=== PATIENT | male | born 1980 | race Caucasian/White ===

== ENCOUNTER 2017-04-23 14:10 | Emergency (ER) | payer SELFPAY ==
[2017-04-23 14:18] VITALS: BP 124/82; PULSE 80; RESP 16; TEMP 98.2; O2SAT 95
--- NOTE | 2017-04-23 14:59 | EDPHY ---
H & P Time Seen by Provider: 04/23/17 14:22 HPI/ROS: Chief complaint. Groin pain HPI. Patient is a 37-year-old male presents with pain to the right groin area. 4 days ago he was running and stopping at exercise stations to do individual exercises. He was at a station doing sit-ups and decided to more sit ups than usual. While doing sit-ups he felt a pop in the right groin. He has continued to have discomfort with raising his leg and turning his leg to the outside. He feels that he has slight fever 2 days ago. He has not had any vomiting or diarrhea. He notes that he has a "sensitive stomach ". It has maybe been a little more sensitive the last few days. He has not noticed any swelling to the groin area. He notes very slight pain in the right testicle. He has a known spermatocele. He notes no increased swelling or deformity or significant tenderness to the testicle. There is no urinary symptoms. No similar symptoms previously ROS Constitutional. no fever/chills, no weakness Eyes. no problems with vision ENT. no sore throat, no nasal drainage Cardiovascular. no chest pain Respiratory. no shortness of breath, no cough Abdominal. Right groin pain . no problems urinating MS. no calf pain/swelling, no neck/back pain, no joint pain Skin. no rash Lymph. no swollen glands Neuro. no headache, no dizziness, no difficulty walking or with speech Past Medical/Surgical History: Healthy Social History: , nonsmoker, no alcohol Smoking Status: Never smoked Physical Exam: General Appearance: Alert pleasant well-developed male mild distress vital signs are stable Eyes: Pupils equal and round no pallor or injection. ENT, Mouth: Mucous membranes are moist. Respiratory: There are no retractions, lungs are clear to auscultation. Cardiovascular: Regular rate and rhythm. Gastrointestinal: Abdomen is soft and he he does not have tenderness at McBurney's point. He is tender to palpation of the mid inguinal ligament on the right. Testicle exam is normal. Standing the patient up and having him bear down shows no evidence of direct or indirect inguinal hernia. Slight increase in tenderness with flexion of the right hip and the patient manifest pain again and the inguinal ligament area Neurological: Awake and alert, sensory and motor exams grossly normal. Skin: Warm and dry, no rashes. Musculoskeletal: Neck is supple nontender. Extremities symmetrical, full range of motion. Psychiatric: Patient is oriented X 3, there is no agitation. Constitutional: Initial Vital Signs Temperature (C) 36.8 C 04/23/17 14:14 Heart Rate 80 04/23/17 14:14 Respiratory Rate 16 04/23/17 14:14 Blood Pressure 124/82 H 04/23/17 14:14 O2 Sat (%) 95 04/23/17 14:14 Allergies/Adverse Reactions: No Known Allergies Allergy (Unverified 04/23/17 14:18) Home Medications: Medication Instructions Recorded NK [No Known Home Meds] 04/23/17 Medical Decision Making ED Course/Re-evaluation: The patient and I discussed further evaluation including laboratory evaluation including urinalysis. We discussed imaging studies. Due to the fact that this is afternoon the patient prefers not to have further evaluation done at this point but of will follow up. He and I discussed treatment plan including criteria for return importance of follow-up and further evaluation. He expresses understanding and agreement Differential Diagnosis: I think that this is strain or injury to the inguinal ligament. He is tender to this area to palpation. I considered appendicitis but he is really not tender at McBurney's point and he has had this now for 3-4 days without significant abdominal findings. I considered testicular torsion as well as epididymitis. I have considered urinary tract infection. I considered hernia both direct and indirect as well as an incarcerated hernia. He does not seem to have any of these. He and I agreed on conservative management with follow- up with surgery in several days if not beginning to improve Departure - Departure Disposition: Home, Routine, Self-Care Clinical Impression: Strain of groin Qualifiers: Encounter type: initial encounter Laterality: right Qualified Code(s): S76.211A - Strain of adductor muscle, fascia and tendon of right thigh, initial encounter Condition: Good Instructions: Groin Strain (ED) Additional Instructions: Heat to sore area. Ibuprofen 600 mg every 6 hr for the next 24-48 hours. Activity as tolerated. Return for worsening pain, swelling, vomiting, fever. Recheck in 3-4 days if not improved Referrals: Eduardo Hinds MD [Medical Doctor] - 3-4 days, if not improved
== END 2017-04-23 15:00 | disposition home or self-care (01) ==
LOC: CED 14:10
DX: S76.211A Strain of adductor muscle, fascia and tendon of right thigh, initial encounter (principal); X58.XXXA Exposure to other specified factors, initial encounter; Y99.8 Other external cause status; Y93.B2 Activity, push-ups, pull-ups, sit-ups

== ENCOUNTER 2017-04-28 20:40 | Inpatient (IN) | payer OTHER ==
[2017-04-28] MEDS ORDERED: NS 1,000 ML IV ONE (21:21)
--- NOTE | 2017-04-28 21:27 | EDPHY ---
General - History Smoking Status: Never smoked Narrative: CHIEF COMPLAINT: Abdominal and groin pain HISTORY OF PRESENT ILLNESS: Patient complains of right lower quadrant and right inguinal pain that started last Monday, 9 days ago. This was afternoon exercising. The pain is minimal at day. It worsened the next 2 days. He was seen here on the 23 of April with examination only. Laboratory studies and CT scan were performed because he asked to leave for this due to time constraints. He was discharged with ibuprofen and instructions to return emergency department. He has had no improvement of the symptoms and thus he returns. He is now also having some epigastric discomfort, cough, fever, chills and "maybe flu like" symptoms. Also has some mild right testicular pain that is unchanged over the past 10 days, and he says consistent with his known spermatocele. No chest pain or shortness of breath. No neck pain or stiffness. Headache. No urinary complaints. He also wanted to urgent care prior to right here, and they sent him to our facility for higher level of care with no intervention pain REVIEW OF SYSTEMS: Ten systems reviewed and are negative unless otherwise noted in the HPI PCP: No primary care physician SPECIALISTS: None PAST MEDICAL HISTORY: Right spermatocele PAST SURGICAL HISTORY: None SOCIAL HISTORY: Nonsmoker. Self-employed here locally FAMILY HISTORY: Noncontributory EXAMINATION General Appearance: Alert, no distress Head: normocephalic, atraumatic Eyes: Pupils equal and round, no conjunctival pallor or injection ENT, Mouth: Mucous membranes moist. Uvula midline. Airway patent Neck: Normal inspection, supple, non-tender Respiratory: Lungs are clear to auscultation. No wheezing or crackles Cardiovascular: Tachycardic rate at 103 beats per minute. Regular rhythm. No murmur Gastrointestinal: Abdomen is soft and nondistended. There is minimal tenderness in the epigastrium. No guarding in the epigastrium. There is right lower quadrant tenderness at McBurney's point with firmness of uncertain etiology. There is guarding in the right lower quadrant. There is no CVA tenderness. No tympany or rigidity. Neurological: A&O, nonfocal, normal gait Skin: Warm and dry, no rash. No petechiae purpura Extremities: Nontender, no pedal edema Psychiatric: Mood and affect normal DIFFERENTIAL DIAGNOSES: Including but not limited to appendicitis, rectus sheath hematoma, colitis, muscular tear, muscular strain, inguinal ligament sprain MDM: 9:20 p.m. Right lower quadrant and right inguinal abdominal pain since last Monday. Abdominal exam does reveal guarding the right lower quadrant with firmness McBurney's point of uncertain etiology. He is tachycardic and borderline febrile. I have ordered laboratory studies, IV fluid, CT scan abdomen and pelvis. I have ordered lactic acid patient may need blood cultures. He is in no acute distress. No hypoxia. No hypotension. 9:45 p.m. Lactic acid is negative. There is mild leukocytosis. CT scan pending. 10:20 p.m. I have reviewed the CT scan myself and with Dr. Cruz. There is evidence of ruptured appendicitis with abscess. I have re-evaluated the patient and he is NPO as of 1:30 p.m.. I informed him of the surgical consult pending. 10:25 p.m. I discussed the case with on-call surgeon Dr. Hinds. He will come evaluate the patient in the emergency department. 10:28 p.m. Notified by radiologist Dr. Askew. CT scan does reveal perforated appendicitis with abscess and inflammatory changes in the terminal ileum. 10:44 p.m. Patient is currently being evaluated by Dr. Hinds. 11:[address] Hinds has evaluated the patient and plans for surgical intervention. This will be a difficult intervention as the patient did have delayed presentation and now has perforated appendicitis with abscess. He has discussed with the patient and patient will likely be taken to the OR soon. At this time he is in no acute distress, IV Invanz has been ordered and he has received IV fluid resuscitation in the emergency department. He is admitted in stable condition to the operating room SUPERVISION: Patient was evaluated and examined in conjunction with my secondary supervising physician as documented. We have both examined the patient. (Junior Salas) Medical Decision Making: PHYSICIAN DOCUMENTATION: The patient was evaluated and managed by the Physician Payroll And Benefits Assistant and myself. I have reviewed the chart and agree with the findings and plan of care as documented. In addition, I examined the patient myself at 2140. History confirmed as symptoms started 4 days prior to [facility] with right lower quadrant pain after doing sit-ups at [facility]. Symptoms persisted and now has pain in his right lower quadrant of his abdomen. Physical findings as follows: Some right lower quadrant swelling and tenderness to palpation. Plan for CT scanning after i-STAT creatinine. Differential includes but not limited to rectus sheath hematoma, ruptured appendicitis. CT personally interpreted as appendicitis with appendicolith and surrounding abscess. Surgical consultation, IV Invanz, admission. I am the secondary supervising physician. (Kristian Cruz) - Diagnostics Imaging Results: Imaging Impressions Abdomen CT 04/28/17 21:21 Impression: 1. Findings compatible with appendicitis, with rupture and adjacent abscess. Multiple appendoliths. Marked surrounding inflammatory change. 2. Mild free fluid in the pelvis. Results called and discussed with Junior Salas PA-C, on April 28, 2017 at 2230. - Objective Vital Signs: Initial Vital Signs Temperature (C) 100.0 F 04/28/17 21:16 Heart Rate 113 H 04/28/17 21:16 Respiratory Rate 18 04/28/17 21:16 Blood Pressure 131/85 H 04/28/17 21:16 O2 Sat (%) 95 04/28/17 21:16 O2 Delivery Mode Nasal Cannula O2 (L/minute) 3 Allergies/Adverse Reactions: No Known Allergies Allergy (Unverified 04/23/17 14:18) Home Medications: Medication Instructions Recorded NK [No Known Home Meds] 04/23/17 Laboratory Results: Laboratory Results 04/28/17 21:30 04/28/17 21:30 04/28/17 04/28/17 04/28/17 21:40 21:30 21:30 WBC 10.39 10^3/uL H 10^3/uL (3.80-9.50) RBC 5.06 10^6/uL 10^6/uL (4.40-6.38) Hgb 15.1 g/dL g/dL (13.7-17.5) POC Hgb 13.6 gm/dL L gm/dL (13.7-17.5) Hct 42.4 % % (40.0-51.0) POC Hct 40 % % (40-51) MCV 83.8 fL fL (81.5-99.8) MCH 29.8 pg pg (27.9-34.1) MCHC 35.6 g/dL g/dL (32.4-36.7) RDW 11.9 % % (11.5-15.2) Plt Count 126 10^3/uL L 10^3/uL (150-400) MPV 9.1 fL fL (8.7-11.7) Neut % (Auto) 73.1 % % (39.3-74.2) Lymph % (Auto) 12.0 % L % (15.0-45.0) [place] % (Auto) 12.9 % % (4.5-13.0) Eos % (Auto) 1.2 % % (0.6-7.6) Baso % (Auto) 0.4 % % (0.3-1.7) Nucleat RBC Rel Count 0.0 % % (0.0-0.2) Absolute Neuts (auto) 7.60 10^3/uL H 10^3/uL (1.70-6.50) Absolute Lymphs (auto) 1.25 10^3/uL 10^3/uL (1.00-3.00) Absolute Monos (auto) 1.34 10^3/uL H 10^3/uL (0.30-0.80) Absolute Eos (auto) 0.12 10^3/uL 10^3/uL (0.03-0.40) Absolute Basos (auto) 0.04 10^3/uL 10^3/uL (0.02-0.10) Absolute Nucleated RBC 0.00 10^3/uL 10^3/uL (0-0.01) Immature Gran % 0.4 % % (0.0-1.1) Immature Gran # 0.04 10^3/uL 10^3/uL (0.00-0.10) VBG Lactic Acid POC Sodium 138 mEq/L mEq/L (134-144) Sodium 138 mEq/L mEq/L (134-144) POC Potassium 3.6 mEq/L mEq/L (3.3-5.0) Potassium 4.0 mEq/L mEq/L (3.5-5.2) POC Chloride 99 mEq/L mEq/L (97-110) Chloride 100 mEq/L mEq/L (97-110) Carbon Dioxide 23 mEq/l mEq/l (22-31) Anion Gap 15 mEq/L mEq/L (8-16) POC BUN 10 mg/dL mg/dL (7-23) BUN 11 mg/dL mg/dL (7-23) Creatinine 1.0 mg/dL mg/dL (0.7-1.3) POC Creatinine 1.1 mg/dL mg/dL (0.7-1.3) Estimated GFR > 60 Glucose 100 mg/dL mg/dL (70-100) POC Glucose 99 mg/dL mg/dL (70-100) Calcium 9.4 mg/dL mg/dL (8.5-10.4) Total Bilirubin 1.3 mg/dL mg/dL (0.1-1.4) Conjugated Bilirubin 0.4 mg/dL mg/dL (0.0-0.5) Unconjugated Bilirubin 0.9 mg/dL mg/dL (0.0-1.1) AST 24 IU/L IU/L (17-59) ALT 39 IU/L IU/L (21-72) Alkaline Phosphatase 106 IU/L IU/L (38-126) Total Protein 7.0 g/dL g/dL (6.3-8.2) Albumin 3.9 g/dL g/dL (3.5-5.0) Lipase 37 IU/L IU/L (23-300) Urine Color Urine Appearance Urine pH Ur Specific [place] Urine Protein Urine Ketones Urine Blood Urine Nitrate Urine Bilirubin Urine Urobilinogen Ur Leukocyte Esterase Urine RBC Urine WBC Ur Epithelial Cells Urine Mucus Urine Glucose 04/28/17 04/28/17 21:30 21:15 WBC RBC Hgb POC Hgb Hct POC Hct MCV MCH MCHC RDW Plt Count MPV Neut % (Auto) Lymph % (Auto) [place] % (Auto) Eos % (Auto) Baso % (Auto) Nucleat RBC Rel Count Absolute Neuts (auto) Absolute Lymphs (auto) Absolute Monos (auto) Absolute Eos (auto) Absolute Basos (auto) Absolute Nucleated RBC Immature Gran % Immature Gran # VBG Lactic Acid 0.9 mmol/L mmol/L (0.7-2.1) POC Sodium Sodium POC Potassium Potassium POC Chloride Chloride Carbon Dioxide Anion Gap POC BUN BUN Creatinine POC Creatinine Estimated GFR Glucose POC Glucose Calcium Total Bilirubin Conjugated Bilirubin Unconjugated Bilirubin AST ALT Alkaline Phosphatase Total Protein Albumin Lipase Urine Color YELLOW Urine Appearance CLEAR Urine pH 5.0 (5.0-7.5) Ur Specific [place] 1.018 (1.002-1.030) Urine Protein NEGATIVE (NEGATIVE) Urine Ketones 2+ H (NEGATIVE) Urine Blood 2+ H (NEGATIVE) Urine Nitrate NEGATIVE (NEGATIVE) Urine Bilirubin NEGATIVE (NEGATIVE) Urine Urobilinogen NEGATIVE EU EU (0.2-1.0) Ur Leukocyte Esterase NEGATIVE (NEGATIVE) Urine RBC 1-3 /hpf /hpf (0-3) Urine WBC 1-3 /hpf /hpf (0-3) Ur Epithelial Cells NONE SEEN /lpf /lpf (NONE-1+) Urine Mucus TRACE /lpf /lpf (NONE-1+) Urine Glucose NEGATIVE (NEGATIVE) Medications Given: Discontinued Medications Bupivacaine HCl (Sensorcaine 0.25% Sdv) Confirm Administered Dose 30 ml .ROUTE .STK-MED ONE Stop: 04/28/17 23:17 Last Admin: 04/29/17 01:28 Dose: 30 ml Epinephrine HCl (Epinephrine) Confirm Administered Dose 1 mg .ROUTE .STK-MED ONE Stop: 04/28/17 23:17 Last Admin: 04/29/17 01:29 Dose: 0.15 mg Ertapenem (Invanz) 1 gm IVP EDNOW ONE PRN Reason: Protocol Stop: 04/28/17 22:26 Last Admin: 04/28/17 22:42 Dose: 1 gm Fentanyl (Sublimaze) 25 - 100 mcg IVP Q5M PRN PRN Reason: PACU, IMMEDIATE Pain control Stop: 04/29/17 01:29 Last Admin: 04/29/17 01:35 Dose: 50 mcg Sodium Chloride (Ns) 1,000 mls @ 0 mls/hr IV EDNOW ONE; Wide Open PRN Reason: Protocol Stop: 04/28/17 21:22 Last Admin: 04/28/17 21:57 Dose: 1,000 mls Point of Care Test Results: 04/28/17 21:40 POC Sodium 138 POC Potassium 3.6 POC Chloride 99 POC BUN 10 POC Creatinine 1.1 POC Glucose 99 Departure - Departure Disposition: [facility] Inpatient Acute Clinical Impression: Appendicitis with peritoneal abscess Condition: Good Referrals: NONE *PRIMARY CARE P,. [Primary Care Provider] - As per Instructions
[2017-04-28 21:45] LABS: PLATELET COUNT 126 10^3/uL (150-400)
[2017-04-28] MEDS ORDERED: IOPAMIDOL (ISOVUE-300) 100 ML BTL ONE (21:52)
[2017-04-28] MEDS ORDERED: ERTAPENEM 1 GM VIAL IVP ONE (22:25)
[2017-04-28] MEDS ORDERED: NS 100 ML BAG IV ONE (22:39)
--- NOTE | 2017-04-28 23:06 | PDGENHP ---
History and Physical - Chief Complaint abdominal pain - History of Present Illness Patient has had pain since last Monday. Went to [facility] last Monday for workup but because of the holiday decided to go home. Since that time, has had persistent abdominal pain with nausea but has been taking schedule ibuprofen for the pain. Yesterday began to really have more nausea and anorexia. Endorses chills, denies fevers. 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 Review of Systems Review of Systems: ROS: 10pt was reviewed & negative except for what was stated in HPI & below Physical Exam Physical Exam: Temp Pulse Resp BP Pulse Ox 37.4 C 106 H 16 126/83 H 95 04/28/17 22:35 04/28/17 22:35 04/28/17 22:35 04/28/17 22:35 04/28/17 22:35 Constitutional: no apparent distress, appears nourished, not in pain Eyes: PERRL, anicteric sclera, EOMI Ears, Nose, Mouth, Throat: moist mucous membranes, hearing normal, ears appear normal, no oral mucosal ulcers Cardiovascular: regular rate and rhythym, no murmur, rub, or gallop, No edema Respiratory: no respiratory distress, no rales or rhonchi, clear to auscultation Gastrointestinal: other (TTP in the RLQ with rebound and guarding ) Genitourinary: no bladder fullness, no bladder tenderness Skin: warm, normal color, no rashes or abrasions, no fluctuance, no induration, No mottled Musculoskeletal: full muscle strength, no muscle tenderness, normal joint ROM, no joint effusions Psychiatric: interacting appropriately, not anxious, not encephalopathic, thought process linear Lymph, Heme, Immunologic: no cervical LAD, no supraclavicular LAD Lab Data & Imaging Review 04/28/17 21:30 04/28/17 21:30 WBC 10.39 10^3/uL (3.80-9.50) H 04/28/17 21: RBC 5.06 10^6/uL (4.40-6.38) 04/28/17 21:30 Hgb 15.1 g/dL (13.7-17.5) 04/28/17 21:30 POC Hgb 13.6 gm/dL (13.7-17.5) L 04/28/17 21:40 Hct 42.4 % (40.0-51.0) 04/28/17 21:30 POC Hct 40 % (40-51) 04/28/17 21: MCV 83.8 fL (81.5-99.8) 04/28/17 21: MCH 29.8 pg (27.9-34.1) 04/28/17 21: MCHC 35.6 g/dL (32.4-36.7) 04/28/17: RDW 11.9 % (11.5-15.2) 04/28/17 21: Plt Count 126 10^3/uL (150-400) L 04/28/17 21: MPV 9.1 fL (8.7-11.7) 04/28/17 21: Neut % (Auto) 73.1 % (39.3-74.2) 04/28/17 21:30 Lymph % (Auto) 12.0 % (15.0-45.0) L 04/28/17: Scott % (Auto) 12.9 % (4.5-13.0) 04/28/17 21:30 Eos % (Auto) 1.2 % (0.6-7.6) 04/28/17 21: Baso % (Auto) 0.4 % (0.3-1.7) 04/28/17: Nucleat RBC Rel Count 0.0 % (0.0-0.2) 04/28/17 21:30 Absolute Neuts (auto) 7.60 10^3/uL (1.70-6.50) H 04/28/17 21:30 Absolute Lymphs (auto) 1.25 10^3/uL (1.00-3.00) 04/28/17 21:30 Absolute Monos (auto) 1.34 10^3/uL (0.30-0.80) H 04/28/17 21:30 Absolute Eos (auto) 0.12 10^3/uL (0.03-0.40) 04/28/17 21:30 Absolute Basos (auto) 0.04 10^3/uL (0.02-0.10) 04/28/17 21:30 Absolute Nucleated RBC 0.00 10^3/uL (0-0.01) 04/28/17 21:30 Immature Gran % 0.4 % (0.0-1.1) 04/28/17 21:30 Immature Gran # 0.04 10^3/uL (0.00-0.10) 04/28/17 21:30 VBG Lactic Acid 0.9 mmol/L (0.7-2.1) 04/28/17 21:30 POC Sodium 138 mEq/L (134-144) 04/28/17 21:40 Sodium 138 mEq/L (134-144) 04/28/17 21:30 POC Potassium 3.6 mEq/L (3.3-5.0) 04/28/17 21:40 Potassium 4.0 mEq/L (3.5-5.2) 04/28/17 21:30 POC Chloride 99 mEq/L (97-110) 04/28/17 21:40 Chloride 100 mEq/L (97-110) 04/28/17 21:30 Carbon Dioxide 23 mEq/l (22-31) 04/28/17 21:30 Anion Gap 15 mEq/L (8-16) 04/28/17 21:30 POC BUN 10 mg/dL (7-23) 04/28/17 21:40 BUN 11 mg/dL (7-23) 04/28/17 21:30 Creatinine 1.0 mg/dL (0.7-1.3) 04/28/17 21:30 POC Creatinine 1.1 mg/dL (0.7-1.3) 04/28/17 21:40 Estimated GFR > 60 04/28/17 21:30 Glucose 100 mg/dL (70-100) 04/28/17 21:30 POC Glucose 99 mg/dL (70-100) 04/28/17 21:40 Calcium 9.4 mg/dL (8.5-10.4) 04/28/17 21:30 Total Bilirubin 1.3 mg/dL (0.1-1.4) 04/28/17 21:30 Conjugated Bilirubin 0.4 mg/dL (0.0-0.5) 04/28/17 21:30 Unconjugated Bilirubin 0.9 mg/dL (0.0-1.1) 04/28/17 21:30 AST 24 IU/L (17-59) 04/28/17 21:30 ALT 39 IU/L (21-72) 04/28/17 21:30 Alkaline Phosphatase 106 IU/L (38-126) 04/28/17 21:30 Total Protein 7.0 g/dL (6.3-8.2) 04/28/17 21:30 Albumin 3.9 g/dL (3.5-5.0) 04/28/17 21:30 Lipase 37 IU/L (23-300) 04/28/17 21:30 Urine Color YELLOW 04/28/17 21:15 Urine Appearance CLEAR 04/28/17 21:15 Urine pH 5.0 (5.0-7.5) 04/28/17 21:15 Ur Specific [place] 1.018 (1.002-1.030) 04/28/17 21:15 Urine Protein NEGATIVE (NEGATIVE) 04/28/17 21:15 Urine Ketones 2+ (NEGATIVE) H 04/28/17 21:15 Urine Blood 2+ (NEGATIVE) H 04/28/17 21:15 Urine Nitrate NEGATIVE (NEGATIVE) 04/28/17 21:15 Urine Bilirubin NEGATIVE (NEGATIVE) 04/28/17 21:15 Urine Urobilinogen NEGATIVE EU (0.2-1.0) 04/28/17 21:15 Ur Leukocyte Esterase NEGATIVE (NEGATIVE) 04/28/17 21:15 Urine RBC 1-3 /hpf (0-3) 04/28/17 21:15 Urine WBC 1-3 /hpf (0-3) 04/28/17 21:15 Ur Epithelial Cells NONE SEEN /lpf (NONE-1+) 04/28/17 21:15 Urine Mucus TRACE /lpf (NONE-1+) 04/28/17 21:15 Urine Glucose NEGATIVE (NEGATIVE) 04/28/17 21:15 Visualized and Interpreted imaging results: Yes Interpretation: CT: perforated appendicitis, multiple large appendicoliths. Assessment & Plan Assessment: Appendicitis with peritoneal abscess (Acute) Plan: 37yo M c perforated appendicitis. - Appears as though it is contained but does have some free fluid within the pelvis. Also has multiple large appendicolith's. Given those findings, appears that operative drainage and appendectomy likely his best choice. Discussed the risks, benefits and alternatives. Will proceed to OR NAM. Did discuss the likelihood of needing at least hand assist versus open procedure
[2017-04-28] MEDS ORDERED: BUPIVACAINE 0.25% 30 ML SDV ONE (23:16)
[2017-04-28] MEDS ORDERED: MIDAZOLAM 2 MG/2 ML VIAL IVP ONE (23:38)
--- NOTE | 2017-04-28 23:39 | PDANEPAE ---
ANE History of Present Illness Appendectomy laparoscopic vs. hand assist vs. open ANE Past Medical History - Pulmonary History Hx Oxygen in Use at Home: No - Endocrine History Hx Diabetes: No ANE Review of Systems Review of systems is: negative Review of Systems: - Exercise capacity Exercise capacity: >=4 METS ANE Patient History - Allergies Allergies/Adverse Reactions: No Known Allergies Allergy (Unverified 04/23/17 14:18) - Home Medications Home Medications: NK [No Known Home Meds] 04/23/17 [Last Taken Unknown] - NPO status NPO Since - Liquids (Date): 04/28/17 NPO Since - Liquids (Time): 16:00 NPO Since - Solids (Date): 04/28/17 NPO Since - Solids (Time): 13:30 - Smoking Hx Smoking Status: Never smoked - Alcohol Use Alcohol Use: Occasionally ANE Labs/Vital Signs - Labs Result Diagrams: 04/28/17 21:30 04/28/17 21:30 - Vital Signs Blood Pressure: 126/83 Heart Rate: 106 Respiratory Rate: 16 O2 Sat (%): 95 Height: 177.8 cm Weight: 73.936 kg ANE Physical Exam - Airway Neck exam: FROM Mallampati Score: Class 2 - Pulmonary Pulmonary: no respiratory distress - Cardiovascular Cardiovascular: regular rate and rhythym - ASA Status ASA Status: II, E ANE Anesthesia Plan Anesthesia Plan: general endotracheal anesthesia
[2017-04-28] MEDS ORDERED: LIDOCAINE 2% 100 MG/5 ML SYR ONE (23:54)
[2017-04-28] MEDS ORDERED: DEXAMETHASONE 4 MG/ML VIAL ONE (23:54)
[2017-04-28] MEDS ORDERED: ROCURONIUM 50 MG/5 ML VIAL ONE (23:54)
[2017-04-28] MEDS ORDERED: ONDANSETRON 4 MG/2 ML VIAL ONE (23:54)
[2017-04-28] MEDS ORDERED: SUGAMMADEX SODIUM 200 MG/2 ML VIAL IVP ONE (23:54)
[2017-04-28] MEDS ORDERED: fentaNYL 250 MCG/5 ML INJ ONE (23:55)
[2017-04-28] MEDS ORDERED: PROPOFOL 200 MG/20 ML VIAL ONE (23:56)
[2017-04-29] MEDS ORDERED: PHENYLEPHRINE HCL 100 MCG/ML SYR ONE (00:06)
[2017-04-29] MEDS ORDERED: NALOXONE HCL 0.4 MG/ML INJ IVP PRN ×2 (00:29→01:22)
[2017-04-29] MEDS ORDERED: DEXAMETHASONE 4 MG/ML VIAL IVP PRN (00:29)
[2017-04-29] MEDS ORDERED: PROMETHAZINE HCL 25 MG/ML INJ IVP PRN (00:29)
[2017-04-29] MEDS ORDERED: HYDROCODONE/APAP 5/325 TAB PO PRN (00:29)
[2017-04-29] MEDS ORDERED: MEPERIDINE 25 MG/ML SYR IVP PRN (00:29)
[2017-04-29] MEDS ORDERED: ONDANSETRON 4 MG/2 ML VIAL IVP PRN ×2 (00:29→01:22)
[2017-04-29] MEDS ORDERED: ACETAMINOPHEN 500 MG TAB PO PRN (00:29)
[2017-04-29] MEDS ORDERED: OXYCODONE/APAP 5/325 TAB PO PRN (00:29)
--- NOTE | 2017-04-29 00:31 | POSTANESTH ---
Post Anesthetic Evaluation Cardiovascular Status: Normal, Stable, Similar to Pre-Op Cond Respiratory Status: Normal, Stable, Similar to Pre-op Cond. Level of Consciousness/Mental Status: Can Participate in Eval, Mildly Sleepy, Arousable Pain Control: Adequate, Prn Tx Ordered Nausea/Vomiting Control: Adequate, Prn Tx Ordered Complications Possibly Related to Anesthesia: None Noted
--- NOTE | 2017-04-29 01:22 | POSTOPPROG ---
Post Op Note Date of Operation: 04/29/17 Surgeon: Eduardo Hinds Anesthesiologist: Jessica Anesthesia: GET(General Endotracheal) Pre-op Diagnosis: perforated appendicitis Post-op Diagnosis: same Procedure: laparoscopic hand assisted appendectomy Findings: perforated, moderate abscess cavity, multiple fecaliths removed Inf/Abcess present in the surg proc area at time of surgery?: Yes Depth: Organ Space EBL: Minimal Total fluids administered: 2000cc washout Specimen(s): appendix with fecaliths
[2017-04-29] MEDS ORDERED: fentaNYL 100 MCG/2 ML INJ ONE (01:31)
[2017-04-29] MEDS: fentaNYL 100 MCG/2 ML INJ IVP PRN ×2 (01:35→01:44)
[2017-04-29] MEDS ORDERED: HYDROmorphONE/DILAUDID 1 MG/ML INJ ONE (01:47)
[2017-04-29] MEDS: HYDROmorphONE/DILAUDID 1 MG/ML INJ IVP PRN ×2 (01:56→02:07)
[2017-04-29] MEDS: D5W 1/2 NS W/ 20 KCl/L 1,000 ML IV SCH ×2 (02:24→20:05)
[2017-04-29] MEDS: HYDROmorphONE/DILAUDID 6 MG/30 ML PCA IV PRN ×2 (02:24→16:13)
--- NOTE | 2017-04-29 04:55 | GOP ---
[f rep st] OPERATIVE REPORT DATE OF OPERATION: 04/28/2017 SURGEON: Eduardo Hinds MD RESIDENTIAL PROPERTY MANAGER: None. ANESTHESIA: General endotracheal. ANESTHESIOLOGIST: Dr. Lopez. PREOPERATIVE DIAGNOSIS: Ruptured appendicitis. POSTOPERATIVE DIAGNOSIS: Ruptured appendicitis. PROCEDURE PERFORMED: Laparoscopic hand assisted appendectomy. FINDINGS: Acute perforated appendicitis with abscess cavity successfully washed out. All fecaliths removed. SPECIMENS: Appendix with fecaliths. ESTIMATED BLOOD LOSS: 5 cc. DESCRIPTION OF PROCEDURE: The patient was greeted in the preoperative suite. Once again, risks, benefits, and alternatives were discussed. Consent was signed. He was then brought back to the operative suite, placed on the OR table in supine position. After all anesthesia machines, including SCDs, were on and functioning, [employer] time-out was performed. After successful induction of general anesthesia, the patient's abdomen was prepped and draped in the typical sterile fashion. I successfully entered the abdomen using the Veress needle, superior to the umbilicus and achieved pneumoperitoneum to 15 mmHg, which was well tolerated by the patient. Using the Visiport technique I successfully inserted a 12 mm Visiport into the patient 's abdomen. Once successfully in the abdomen I then inserted 2 additional 5 mm ports, 1 in the suprapubic, 1 in the left lower quadrant, both under direct visualization. I turned my attention toward the right lower quadrant where the omentum had successfully walled off the perforation. I successfully mobilized the omentum off it and identified the purulent perforation cavity. I identified the appendix and successfully freed it from its surrounding tissue. It had such bad induration and swelling that I was unable to do this completely laparoscopically. I increased my suprapubic incision site approximately 5 cm total length through which a hand port was placed. The hand port allowed me to successfully additionally mobilize the colon as well as present the appendix in a fashion where I was able to successfully take down the mesoappendix using the Harmonic scalpel. After taking down the mesoappendix I successfully identified the appendiceal base which was healthy and clean. Using a single fire of the Endo-AMEE blue load stapler I successfully amputated the appendix and removed it from the abdomen. I inspected my staple line which was clean, dry and intact. The mesoappendix was hemostatic. I then turned my attention toward the terminal ilium, which had some adhesions to it, which were successfully taken down with combination of blunt and sharp dissection. I then irrigated the patient's right lower quadrant and pelvis with 2 L sterile saline noting clear effluent in the suction canister. Once again inspected my staple lines before removing my camera which was intact. I brought back the omentum and placed it over the right lower quadrant operative site. I inspected the remainder of the viscera which was normal and did not have any significant pathology. I then evacuated my pneumoperitoneum, removed my GelPort, changed gown and gloves, and successfully reapproximated the midline fascia with a running #1 PDS suture. Subcutaneous tissue was irrigated with warm normal saline. The skin was closed with ernesto. My supraumbilical port site was also closed with an interrupted 0 Vicryl stitch. Sterile dressings were placed. The patient was then extubated in the operative suite and taken to PACU in satisfactory condition. DRAINS: None. COUNTS: All counts were reported as correct x2. /[id number]/MODL MTDD
[2017-04-29] MEDS: KETOROLAC 15 MG/1 ML SDV IVP SCH ×3 (05:46→18:10)
--- NOTE | 2017-04-29 07:39 | SOAPPROG ---
SOAP Progress Note Assessment/Plan: Assessment/Plan: - 37yo M POD#1 s/p lap hand assisted appendectomy for perforated appendicitis - VSS, HDS. 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 Incisions covered with clean dressings - Plan for the day: walk, drink liquids, abx. Told him that he will at least be here through today, he is motivated to go home when appropriate. Would plan for at least 7 total days of abx given contamination 04/29/17 07:37 Subjective: Doing well, tolerating clear liquids Objective: Vital Signs Temp Pulse Resp BP Pulse Ox 37.0 C 95 16 106/71 98 04/29/17 06:11 04/29/17 06:11 04/29/17 05:11 04/29/17 06:11 04/29/17 06:11 04/28/17 04/29/17 04/30/17 05:59 05:59 05:59 Intake Total 6430 350 Output Total 40 Balance 2670 350 ICD10 Worksheet Patient Problems: Problems Problem Status Onset Appendicitis with peritoneal abscess Acute
[2017-04-29] MEDS: ERTAPENEM 1 GM VIAL IVP SCH (08:50)
--- NOTE | 2017-04-29 12:30 | ASMTCMCOM ---
CM Note CM Note Notes: 04/29/2017 Case Management Note Reviewed chart. There are no case management d/c needs d/t pt age, activity levels prior to admission, marital status and employment status. Case Management d/c poc: independent with follow up as directed. Case Management available should needs change. Date Signed: 04/29/2017 12:29 PM Electronically Signed By:Kimber Barreto RN
[2017-04-30] MEDS: KETOROLAC 15 MG/1 ML SDV IVP SCH ×5 (00:50→23:51)
[2017-04-30] MEDS: D5W 1/2 NS W/ 20 KCl/L 1,000 ML IV SCH (03:50)
[2017-04-30] MEDS: ERTAPENEM 1 GM VIAL IVP SCH (08:56)
[2017-04-30] MEDS: HYDROCODONE/APAP 5/325 TAB PO PRN ×3 (08:57→21:08)
--- NOTE | 2017-04-30 09:09 | SOAPPROG ---
SOAP Progress Note Assessment/Plan: Assessment: s/p hand assist lap appy for perforated appendix Clears Advance slowly with return of bowel function Bowel protocol Monitor for infection S: Scant flatus. No nausea. Pain controlled O: Abdomen distended but soft. Bowel sounds present. Dressing dry CTAB RRR Plan: 04/30/17 09:08 Objective: Vital Signs Temp Pulse Resp BP Pulse Ox 36.7 C 95 16 111/77 98 04/30/17 08:00 04/30/17 08:00 04/30/17 08:00 04/30/17 08:00 04/30/17 08:00 04/29/17 04/30/17 05/01/17 05:59 05:59 05:59 Intake Total 2710 5087 Output Total 40 1075 450 Balance 2670 4012 -450 ICD10 Worksheet Patient Problems: Problems Problem Status Onset Appendicitis with peritoneal abscess Acute
[2017-05-01] MEDS: HYDROCODONE/APAP 5/325 TAB PO PRN ×4 (02:34→20:11)
[2017-05-01] MEDS: KETOROLAC 15 MG/1 ML SDV IVP SCH ×3 (05:16→17:45)
[2017-05-01 05:28] LABS: PLATELET COUNT 106 10^3/uL (150-400)
[2017-05-01] MEDS: ERTAPENEM 1 GM VIAL IVP SCH (08:48)
--- NOTE | 2017-05-01 09:41 | SOAPPROG ---
SOAP Progress Note Assessment/Plan: Assessment: s/p hand assist lap appy for perforated appendix Regular diet Bowel protocol Monitor for infection Hope home tomorrow S: Had bowel movements but does not feel as well this am. Had chills when he woke up O: Abdomen distended but soft. Bowel sounds present. Dressing dry CTAB RRR Plan: 04/30/17 09:08 05/01/17 09:40 05/01/17 09:40 Objective: Vital Signs Temp Pulse Resp BP Pulse Ox 37.4 C 107 H 16 134/90 H 91 L 05/01/17 08:00 05/01/17 08:00 05/01/17 08:00 05/01/17 08:00 05/01/17 08:00 Laboratory Results 05/01/17 05:08 04/30/17 05/01/17 05/02/17 05:59 05:59 05:59 Intake Total 5087 3100 Output Total 1075 704 450 Balance 4012 4336 -846 ICD10 Worksheet Patient Problems: Problems Problem Status Onset Appendicitis with peritoneal abscess Acute
--- NOTE | 2017-05-01 16:10 | ASMTCMCOM ---
CM Note CM Note Notes: Discharge plan remains independent with no needs. Patient wasn't feeling well today, chills and fever. Patient being monitored closely for infection. Possible d/c for tomorrow. CM available should d/c needs arise. Date Signed: 05/01/2017 04:10 PM Electronically Signed By:Alesha Jacobo LCSW
[2017-05-02] MEDS: KETOROLAC 15 MG/1 ML SDV IVP SCH ×2 (01:24→06:26)
[2017-05-02] MEDS: HYDROCODONE/APAP 5/325 TAB PO PRN (06:28)
[2017-05-02] MEDS ORDERED: IBUPROFEN 600 MG TAB PO PRN (08:24)
--- NOTE | 2017-05-02 08:59 | SOAPPROG ---
SOAP Progress Note Assessment/Plan: Assessment/Plan: - 37yo M POD#4 s/p lap hand assisted appendectomy for perforated appendicitis - VSS, HDS - Had some abd distention yesterday. - Abdomen reassuring, will see how he does with breakfast. - Have dcd Toradol in favor of ibuprofen, anticipate home later this afternoon. 04/29/17 07:37 05/02/17 08:58 Subjective: Feeling better, still requiring Toradol for pain Objective: Vital Signs Temp Pulse Resp BP Pulse Ox 38.3 C 99 16 128/85 H 91 L 05/02/17 06:21 05/02/17 06:21 05/02/17 06:21 05/02/17 06:21 05/02/17 06:21 Laboratory Results 05/01/17 05:08 05/01/17 05/02/17 05/03/17 05:59 05:59 05:59 Intake Total 3100 1290 Output Total 704 450 450 Balance 2396 840 -450 ICD10 Worksheet Patient Problems: Problems Problem Status Onset Appendicitis with peritoneal abscess Acute
[2017-05-02 09:06] VITALS: BP 107/81; PULSE 95; RESP 14; TEMP 97.8; O2SAT 98
[2017-05-02] MEDS: ERTAPENEM 1 GM VIAL IVP SCH (09:10)
--- NOTE | 2017-05-02 12:53 | PDDCSUM ---
Discharge Summary Discharge Summary: DISCHARGE SUMMARY Date of Admission April 28 Date of Discharge May 02 DISCHARGE DIAGNOSES -perforated appendicitis HOSPITAL COURSE The patient was admitted from the ED and taken to the operating room where they underwent an uneventful laparoscopic hand assisted appendectomy for perforated appendicitis. They were subsequently taken to the PACU and then the general medical floor. The hospital course was uneventful, their diet was advanced to a regular diet which was well tolerated and their pain was well controlled. There remained on IV antibiotics while in the hospital, which was transition to oral antibiotics on discharge. They were discharged home in stable condition on the afternoon of May 02. DISCHARGE MEDICATIONS New medications include Moro as needed for pain and an additional 3 days of Augmentin DISPOSITION Home FOLLOW UP Follow up with me in the office in 10-14 days for a general post-operative visit , will also need staple removal at that time
== END 2017-05-02 14:30 | disposition home or self-care (01) | DRG 358 ==
LOC: F1N 04-29 02:15
PROVIDERS: ADMIT Surgery; ATTEND Surgery
PROC: 0FT44ZZ Resection of Gallbladder, Percutaneous Endoscopic Approach (ICD-10-PCS; principal; 2017-04-28 23:45)
DX: K35.2 Acute appendicitis with generalized peritonitis (principal)
CPT/HCPCS: 82947-QW; 96374; J0171; J1100; J1170; J1335; J1885; J2001; J2370; J2405; J2704; J3010; Q9967